=== PATIENT | female | born 1955 | race African-American/Black ===

== ENCOUNTER 2020-07-05 07:49 | Emergency (ER) | payer BC ==
[~2020-07-05] VITALS: Ht 167.6 cm; Wt 78.0 kg
[2020-07-05 07:52] VITALS: BP 179/89
[2020-07-05] MEDS ORDERED: SODIUM CHLORIDE 0.9% 1,000 ML IV ONE (08:30)
[2020-07-05] MEDS ORDERED: DIPHENHYDRAMINE 50MG/ML VIAL IV ONE (08:30)
[2020-07-05] MEDS ORDERED: PROCHLORPERAZINE 10MG/2ML VIAL IV PRN (08:30)
== END 2020-07-05 10:59 | disposition home or self-care (01) ==
LOC: ER 07:49
DX: R51.9 Headache, unspecified (principal); I10 Essential (primary) hypertension; Z90.710 Acquired absence of both cervix and uterus; Z98.890 Other specified postprocedural states
CPT/HCPCS: 70450; 93005; 96361; 96374; 99284; J0780; J1200; J7030